=== PATIENT | male | born 1965 | race Caucasian/White ===

== ENCOUNTER 2016-11-07 08:20 | Emergency (ER) | payer MEDICAID ==
[~2016-11-07] VITALS: Ht 172.7 cm; Wt 95.0 kg
[~2016-11-07 08:20] MED LIST: ACET1TAB14 PO; INSLAN SQ; INSU3INS6 SUBCUT; METF1000 PO; ONDA4TAB5 PO
[2016-11-07] MEDS ORDERED: HYDROCODONE/ACETAMINOPHEN 5/325MG TABLET PO ONE (11:45)
[2016-11-07 14:05] VITALS: BP 150/80
== END 2016-11-07 14:45 | disposition home or self-care (01) ==
LOC: ER 08:21
DX: T85.618A Breakdown (mechanical) of other specified internal prosthetic devices, implants and grafts, initial encounter (principal); E11.9 Type 2 diabetes mellitus without complications; I10 Essential (primary) hypertension; Z95.0 Presence of cardiac pacemaker; Z88.0 Allergy status to penicillin; Z88.6 Allergy status to analgesic agent; Z79.4 Long term (current) use of insulin; Z79.84 Long term (current) use of oral hypoglycemic drugs; Z79.899 Other long term (current) drug therapy; Z82.49 Family history of ischemic heart disease and other diseases of the circulatory system
CPT/HCPCS: 36556; 36569; 76937; 77001; 99284; C1725; Z7610

== ENCOUNTER 2017-04-29 16:09 | Emergency (ER) | payer MEDICAID ==
[~2017-04-29] VITALS: Ht 172.7 cm; Wt 114.0 kg
[~2017-04-29 16:09] MED LIST changes: +ASPI-1159 PO; +CARV6.2548 PO; +DIPHEN; +DOCU-138 PO; +FAMO-134 PO; +LISI10TA5 PO; +LOPE2TAB26 PO; +MULT-1146 PO; -ONDA4TAB5 PO; +SIMV20TA6 PO; +SULF1TAB48 PO; +[UNRECOGNIZED DRUG - CODE] OP
[2017-04-30 03:48] LABS: CARBON DIOXIDE 27 mEq/L (21-32); CHLORIDE 107 mEq/L (98-107)
[2017-04-30 04:09] LABS: INR 1.2; PROTHROMBIN TIME 12.3 sec (9.4-11.6)
[2017-04-30] MEDS ORDERED: MORPHINE SULFATE 10 MG/ML CPJ IM ONE (05:45)
[2017-04-30] MEDS ORDERED: LIDOCAINE HCL 1% 20ML VIAL (Pyxis) INJ ONE (07:39)
[2017-04-30] MEDS ORDERED: SODIUM BICARBONATE 4% (2.4MEQ) 5ML VIAL IV ONE (07:40)
[2017-04-30 13:10] VITALS: BP 106/48
== END 2017-04-30 13:25 | disposition home or self-care (01) ==
LOC: ER 16:20
DX: T82.898A Other specified complication of vascular prosthetic devices, implants and grafts, initial encounter (principal); E78.00 Pure hypercholesterolemia, unspecified; E11.9 Type 2 diabetes mellitus without complications; I25.10 Atherosclerotic heart disease of native coronary artery without angina pectoris; I10 Essential (primary) hypertension; F17.200 Nicotine dependence, unspecified, uncomplicated; Z95.0 Presence of cardiac pacemaker; Z79.82 Long term (current) use of aspirin; Z79.4 Long term (current) use of insulin; Z88.0 Allergy status to penicillin
CPT/HCPCS: 36415; 36556; 76937; 77001; 80053; 85610; 96372; 99285; J2270; J3490; J7030; J7050; Z7610

== ENCOUNTER 2017-07-10 07:51 | Emergency (ER) | payer MEDICAID ==
[~2017-07-10] VITALS: Ht 177.8 cm; Wt 140.0 kg
[2017-07-10] MEDS ORDERED: ONDANSETRON HCL 4MG/2ML VIAL IV STA (08:22)
[2017-07-10] MEDS ORDERED: SODIUM CHLORIDE 0.9% 1,000 ML IV ONE (08:22)
[2017-07-10] MEDS ORDERED: MORPHINE SULFATE 4 MG/ML CPJ (NOT FOR IM USE) IV STA (08:22)
[2017-07-10 09:22] LABS: BASOPHILS % 0.3 % (0.0-2.0); HEMOGLOBIN. 12.1 g/dL (14.0-18.0); LYMPHOCYTES % 8.1 % (20.0-50.0); MEAN CORPUSCULAR HEMOGLOBIN 26.1 pg (28.0-32.0); MONOCYTES % 6.6 % (2.0-8.0); PLATELET 142 x1000/uL (130-400); RED BLOOD CELL COUNT 4.63 mill/uL (4.7-6.1); RED CELL DISTRIBUTION WIDTH 15.4 % (11.6-14.6)
[2017-07-10 09:29] LABS: INR 1.2; PARTIAL THROMBOPLASTIN TIME 27.1 sec (23.4-31.0); PROTHROMBIN TIME 12.8 sec (9.4-11.6)
[2017-07-10] MEDS ORDERED: ASPIRIN 300MG SUPP PR ONE (13:45)
[2017-07-10 13:58] VITALS: BP 161/89
== END 2017-07-10 15:30 | disposition short-term general hospital (02) ==
LOC: ER 07:59
DX: I63.511 Cerebral infarction due to unspecified occlusion or stenosis of right middle cerebral artery (principal); M25.552 Pain in left hip; E11.9 Type 2 diabetes mellitus without complications; E78.00 Pure hypercholesterolemia, unspecified; I10 Essential (primary) hypertension; Z79.4 Long term (current) use of insulin; Z79.82 Long term (current) use of aspirin; Z88.0 Allergy status to penicillin; Z88.6 Allergy status to analgesic agent; Z95.0 Presence of cardiac pacemaker
CPT/HCPCS: 36415; 70450; 71010; 72192; 73521; 73700; 80048; 85025; 85610; 85730; 93005; 96361; 96374; 96375; 99291; G0482; J2270; J2405; J7030; Z7610